=== PATIENT | male | born 1990 | race Two or more races ===

== ENCOUNTER 2025-01-23 17:59 | Emergency (ER) | payer MEDICAID, SELFPAY ==
[2025-01-23 18:18] VITALS: BP 133/95; PULSE 109; RESP 18; TEMP 37.7; O2SAT 99; BMI 13.6
--- NOTE | 2025-01-23 18:27 | PD.EDRME ---
Rapid Medical Screening Exam RME Arrival date/time: 01/23/25 17:59 34-year-old male who reports is currently in substance abuse treatment clinic presents emergency department complaining of sore throat that started this morning when he woke up. Chief Complaint: Dental/Oral/Throat Time Seen by Provider: 01/23/25 18:06 Vital signs: Vital Signs Temperature 99.8 F 01/23/25 18:18 Pulse Rate 109 H 01/23/25 18:18 Respiratory Rate 18 01/23/25 18:18 Blood Pressure 133/95 H 01/23/25 18:18 Pulse Oximetry (%) 99 01/23/25 18:18 Oxygen Delivery Method Room Air 01/23/25 18:18 Vital signs reviewed by provider: Yes
--- NOTE | 2025-01-23 18:28 | XR_ITS ---
Examination: PA lateral chest 2 views Technique: Upright PA lateral chest 2 views Exam date and time: January 23, 2025 1848 hrs. Comparison March 09, 2023 Indications: Coughing today. Findings: No significant cardiac enlargement No pneumonia or pulmonary edema The osseous structures are intact Impression: No active disease
--- NOTE | 2025-01-23 18:34 | EDNOTE_ITS ---
<Statement entered by Anita Schumacher MD - 01/24/25 05:26> As co-signing physician, I was present and available for consult prn. I concur with the plan and care as documented by the midlevel provider. ED Dental RME/HPI General Chief complaint: Dental/Oral/Throat Stated complaint: THROAT HURTS X AM Time Seen by Provider: 01/23/25 18:06 Source: patient Arrival date/time: 01/23/25 17:59 34-year-old male who reports is currently in substance abuse treatment clinic presents emergency department complaining of sore throat that started this morning when he woke up. Patient denies any fever, chills, vomiting, or any other associated symptom. Mode of arrival: ambulatory Limitations: no limitations RME / HPI RME / HPI Narrative: 01/23/25 17:59 34-year-old male who reports is currently in substance abuse treatment clinic presents emergency department complaining of sore throat that started this morning when he woke up. Related Data Home Medications ?Medication ?Instructions ?Recorded ?Confirmed omeprazole 20 mg capsule,delayed 20 mg PO DAILY 04/29/23 release Previous Rx's ?Medication ?Instructions ?Recorded dicyclomine 20 mg tablet 20 mg PO TID #30 tabs ibuprofen 800 mg tablet 800 mg PO TID PRN pain #30 t abs 03/30/23 oxycodone-acetaminophen 5 mg-325 1 tab PO Q6H PRN pain #10 tabs 04/14/23 mg tablet (Percocet) ibuprofen 600 mg tablet 600 mg PO Q8H PRN pain #20 t abs 01/23/25 Allergies Allergy/AdvReac Type Severity Reaction Status Date / Time NKA* Allergy Uncoded 01/23/25 18:00 Review of Systems Review of Systems Systems Reviewed: All systems reviewed, normal except as documented Constitutional Constitutional: Reports system reviewed and no additional complaints, except as documented, Denies body ache(s), Denies chills and Denies fever(s) Eyes Eyes: Reports system reviewed and no additional complaints, except as documented and Denies change in vision ENT Ears, Nose, Mouth, and Throat: Reports system reviewed and no additional complaints, except as documented, Denies disequilibrium, Denies dizziness, Reports sore throat and Denies vertigo Cardiovascular Cardiovascular: Reports system reviewed and no additional complaints, except as documented, Denies chest pain and Denies dyspnea Respiratory Respiratory: Reports system reviewed and no additional complaints, except as documented, Denies chest congestion, Denies cough and Denies dyspnea Gastrointestinal Gastrointestinal: Reports system reviewed and no additional complaints, except as documented, Denies abdominal pain, Denies nausea and Denies vomiting Musculoskeletal Musculoskeletal: Reports system reviewed and no additional complaints, except as documented, Denies abnormal gait and Denies arthralgias Integumentary/Breasts Skin/Breast: Reports system reviewed and no additional complaints, except as documented, Denies erythema, Denies rash and Denies wounds Neurologic Neurologic: Reports system reviewed and no additional complaints, except as documented, Denies abnormal gait, Denies disequilibrium, Denies dizziness and Denies vertigo Past Medical History Past Medical History NEUROLOGIC: Negative Seizures CARDIAC: Negative Cardiac Disorders or Congestive Heart Failure RESPIRATORY: Negative Chronic Obstructive Pulmonary Disease (COPD) or Asthma GENITOURINARY: Negative Renal Disease ENDOCRINE: Negative Diabetes Mellitus Type 1 or Diabetes Mellitus Type 2 HEMATOLOGIC: Negative Sickle Cell Disease OTHER HISTORY: Negative Blood Transfusions, Blood Transfusion Reaction or Anesthesia Reactions Social History SMOKING STATUS: Never smoker SECOND HAND EXPOSURE: No ED Exam General Limitations: Present no limitations General appearance: Present alert and in no apparent distress Head Head exam: Present atraumatic Eye Eye exam: Present normal appearance, PERRL and EOMI ENT ENT exam: Present normal exam, normal oropharynx and mucous membranes moist Expanded ENT Exam Throat exam: Absent tonsillar erythema, tonsillomegaly, tonsillar exudate or muffled voice Neck Neck exam: Present normal inspection, full ROM and trachea midline Chest Chest inspection: Present normal inspection and symmetric chest wall rise Respiratory Respiratory exam: Present normal lung sounds bilaterally Cardiovascular Cardiovascular exam: Present regular rate, normal rhythm and normal heart sounds Abdominal Exam Abdominal exam: Present soft and normal bowel sounds Extremities Exam Extremities exam: Present normal inspection and full ROM Back Exam Back exam: Present normal inspection and full ROM Neurological Exam Neurological exam: Present alert, oriented X3 and CN II-XII intact Psychiatric Psychiatric exam: Present normal affect and normal mood Skin Skin exam: Present warm, dry, intact and normal color Course Quality Measures none Orders Category Date Time Status XR chest 2V Stat Exams 01/23/25 18:28 Completed Strep A Rapid Stat Lab 01/23/25 18:39 Completed Ketorolac Inj [Toradol Inj] Med 01/23/25 18:28 Discontinued 30 mg IM X1 ONE Vital Signs Vital signs: Vital Signs Temperature 99.8 F 01/23/25 18:18 Pulse Rate 109 H 01/23/25 18:18 Respiratory Rate 18 01/23/25 18:18 Blood Pressure 133/95 H 01/23/25 18:18 Pulse Oximetry (%) 99 01/23/25 18:18 Oxygen Delivery Method Room Air 01/23/25 18:18 99% room air within normal limits Dental / Oral MDM Narrative MDM Narrative:: 34-year-old male who reports is currently in substance abuse treatment clinic presents emergency department complaining of sore throat that started this morning when he woke up. Patient denies any fever, chills, vomiting, or any other associated symptom. Strep swab negative. Chest x-ray was unremarkable. Patient appears nontoxic and is hemodynamically stable. Patient stable for discharge. Patient data External records reviewed:: [facility] previous records Clinical information provided by:: patient Social determinants that could affect healthcare access:: none Patient has the following chronic illnesses:: See chart How is presenting disease/condition affected by chronic disease/condition?: uneffected by Evaluation data The following diagnostics were reviewed and interpreted by me:: lab results and radiology exam(s) Lab and/or radiology exams considered but not ordered:: Ordered Interpretation Summary: Interpreted by me Medications / Prescriptions Medications or Prescriptions considered but not ordered:: Ordered Medication administrations:: Medication Administration History Discontinued Medications Ketorolac Tromethamine (Ketorolac Inj 60 Mg/2 Ml Vial) 30 mg IM X1 ONE Stop: 01/23/25 18:29 Last Admin: 01/23/25 19:54 Dose: 30 mg Documented By: MP Given Consultations Consultation(s) initiated? (list below): No Diagnosis Dental Differential Diagnosis: other (Pharyngitis, otitis media, mononucleosis, viral infection) Most likely diagnosis given after review of the tests above:: Viral infection Admission Indicated Admission indicated?: not indicated Admission Request Was there a request for admission?: No Disposition Plan Disposition Plan: Discharge Discharge Attestation Discharge Attestation: The patient and all family members were given an opportunity to ask questions and understood the discharge instructions. Discharge instructions specifically effects, indications for sooner follow up or return to the emergency department, and the expected course of current diagnosis. Patient condition: Stable Discharge Plan Plan Patient Disposition: HOME (Self Care) Disposition Comment: Stable Prescriptions/Referrals Prescriptions/Med Rec: New ibuprofen 600 mg tablet 600 mg PO Q8H PRN (Reason: pain) Qty: 20 0RF No Action dicyclomine 20 mg tablet 20 mg PO TID Qty: 30 0RF ibuprofen 800 mg tablet 800 mg PO TID PRN (Reason: pain) Qty: 30 0RF omeprazole 20 mg capsule,delayed release(DR/EC) 20 mg PO DAILY Patient Comments: TAKE 1 CAPSULE BY MOUTH 30 MINUTES BEFORE MORNING MEAL EVERY DAY FOR 30 DAYS oxycodone-acetaminophen [Percocet] 5-325 mg tablet 1 tab PO Q6H MDD 6 tabs PRN (Reason: pain) Qty: 10 0RF Referrals: No Primary/Family,Physician [Primary Care Provider] - In 1 week Problem List Clinical Impression: Viral infection Patient/Caregiver Discharge Instructions Discharge Activity: activity as tolerated Education Materials: ED Viral Syndrome (Adult) Additional Instructions: Drink plenty of fluids and get plenty of rest. Take ibuprofen or Tylenol as needed for fever or pain. Follow-up with primary care provider 2 to 3 days. Return to emergency department for any worsening symptoms or as needed. Print Language: Faroese Stand Alone Forms: [employer] Info., Patient Portal Info Letter PA/MANUEL Supervising Physician PA/MANUEL Supervising Physician: Dr. Schumacher
[2025-01-23 19:26] LABS: Strep A Rapid Negative (Negative)
[2025-01-23] MEDS: KETOROLAC INJ 60 MG/2 ML VIAL 30 MG IM (19:54)
[2025-01-23 20:50] VITALS: RESP 18
== END 2025-01-23 20:51 | disposition home or self-care (01) ==
PROVIDERS: Emergency Provider Emergency Medicine
DX: B34.9 Viral infection, unspecified (principal)
CPT/HCPCS: 71046; 87651; 96372; 99283; J1885

== ENCOUNTER → 2025-02-09 | Outpatient (CLI) | payer MEDICAID, SELFPAY ==
--- NOTE | 2025-02-09 15:45 | XR_ITS ---
Examination: Hand, right 3 views Technique: Hand AP, oblique, lateral 3 views Date and time of exam: February 09, 2025 1502 hrs. Indications: Fracture and 9 months ago Findings: Healed fracture base fifth metacarpal No acute fracture Impression: Healed fracture base fifth metacarpal with satisfactory alignment
--- NOTE | 2025-02-09 15:45 | XR_ITS ---
Examination: Wrist, right 3 views Technique: Wrist AP, oblique, lateral 3 views Date and time of exam: February 09, 2025 at 1602 hrs. Indications: History fracture 9 months ago Findings: Healed fracture proximal fifth metacarpal Adequate alignment No acute fracture Carpal bones intact Impression: Healed fracture fifth metacarpal
== END | disposition home or self-care (01) ==
PROVIDERS: PCP Nurse Practitioner Gerontology; Referring Provider Nurse Practitioner Gerontology; Visit Provider Nurse Practitioner Gerontology
DX: M25.531 Pain in right wrist (principal); M79.641 Pain in right hand; Z87.81 Personal history of (healed) traumatic fracture
CPT/HCPCS: 73110; 73130

== ENCOUNTER 2025-03-15 20:00 | Emergency (ER) | payer MEDICAID, SELFPAY ==
[2025-03-15 20:01] VITALS: BMI 35.9
[2025-03-15 21:06] VITALS: BP 142/84; PULSE 89; RESP 18; TEMP 37.2; O2SAT 98
--- NOTE | 2025-03-15 21:20 | PD.EDDENTL ---
ED Dental RME/HPI General Chief complaint: Dental/Oral/Throat Stated complaint: LEFT CHEEK SWELLING, POSS TOOTH INFECTION Time Seen by Provider: 03/15/25 21:15 Arrival date/time: 03/15/25 20:00 34M with no significant PMH presents to ED with L dental pain and cheek swelling. Limitations: no limitations Related Data Home Medications ?Medication ?Instructions ?Recorded ?Confirmed omeprazole 20 mg capsule,delayed 20 mg PO DAILY 04/12/23 04/29/23 release Previous Rx's ?Medication ?Instructions ?Recorded dicyclomine 20 mg tablet 20 mg PO TID #30 tabs 03/30/23 ibuprofen 800 mg tablet 800 mg PO TID PRN pain #30 tabs 03/30/23 oxycodone-acetaminophen 5 mg-325 1 tab PO Q6H PRN pain #10 tabs 04/14/23 mg tablet (Percocet) ibuprofen 600 mg tablet 600 mg PO Q8H PRN pain #20 tabs 01/23/25 amoxicillin 875 mg-potassium 1 tab PO BID 7 days #14 tabs 03/15/25 clavulanate 125 mg tablet Allergies Allergy/AdvReac Type Severity Reaction Status Date / Time No Known Allergies Allergy Verified 03/15/25 20:03 Review of Systems Review of Systems Systems Reviewed: All systems reviewed, normal except as documented Constitutional Constitutional: Reports system reviewed and no additional complaints, except as documented, Denies fever(s) and Denies headache(s) ENT Ears, Nose, Mouth, and Throat: Reports as per HPI, Reports dental pain, Denies disequilibrium, Reports facial pain and Denies headache(s) Cardiovascular Cardiovascular: Reports system reviewed and no additional complaints, except as documented, Denies chest pain and Denies dyspnea Respiratory Respiratory: Reports system reviewed and no additional complaints, except as documented, Denies cough and Denies dyspnea Gastrointestinal Gastrointestinal: Reports system reviewed and no additional complaints, except as documented, Denies abdominal pain, Denies nausea and Denies vomiting Neurologic Neurologic: Reports system reviewed and no additional complaints, except as documented, Denies confusion, Denies disequilibrium and Denies headache(s) Psychiatric Psychiatric: Denies confusion Past Medical History Past Medical History NEUROLOGIC: Negative Seizures CARDIAC: Negative Cardiac Disorders or Congestive Heart Failure RESPIRATORY: Negative Chronic Obstructive Pulmonary Disease (COPD) or Asthma GENITOURINARY: Negative Renal Disease ENDOCRINE: Negative Diabetes Mellitus Type 1 or Diabetes Mellitus Type 2 HEMATOLOGIC: Negative Sickle Cell Disease OTHER HISTORY: Negative Blood Transfusions, Blood Transfusion Reaction or Anesthesia Reactions Social History SMOKING STATUS: Current every day smoker SECOND HAND EXPOSURE: No ED Exam General Limitations: Present no limitations General appearance: Present alert and in no apparent distress Head Head exam: Present atraumatic Eye Eye exam: Present normal appearance, PERRL and EOMI ENT ENT exam: Present normal oropharynx and mucous membranes moist Expanded ENT Exam External ear exam: Present other (L cheek swelling) Teeth exam: Present dental caries and gingival swelling Neck Neck exam: Present normal inspection, full ROM and trachea midline Chest Chest inspection: Present normal inspection and symmetric chest wall rise Respiratory Respiratory exam: Present normal lung sounds bilaterally Cardiovascular Cardiovascular exam: Present regular rate, normal rhythm and normal heart sounds Abdominal Exam Abdominal exam: Present soft and normal bowel sounds Extremities Exam Extremities exam: Present normal inspection and full ROM Back Exam Back exam: Present normal inspection and full ROM Neurological Exam Neurological exam: Present alert, oriented X3 and CN II-XII intact Psychiatric Psychiatric exam: Present normal affect and normal mood Skin Skin exam: Present warm, dry, intact and normal color Course Quality Measures none Orders Category Date Time Status Amoxicillin/Pot Clav 875 [Augmentin 875] Med 03/15/25 21:17 Discontinued 1 tab PO X1 ONE Naproxen [Naprosyn] Med 03/15/25 21:17 Discontinued 500 mg PO X1 ONE Vital Signs Vital signs: Vital Signs Temperature 99 F 03/15/25 21:06 Pulse Rate 89 03/15/25 21:06 Respiratory Rate 18 03/15/25 21:06 Blood Pressure 142/84 H 03/15/25 21:06 Pulse Oximetry (%) 98 03/15/25 21:06 Oxygen Delivery Method Room Air 03/15/25 21:06 O2 at 98% on RA and WNLs Dental / Oral MDM Narrative MDM Narrative:: 34M with no significant PMH presents to ED with L dental pain and cheek swelling. Physical exam reveals dental carries, gingival swelling, and L cheek swelling. Patient is afebrile, calm, and alert. Likely dental abscess. Meds and quitline counselor given. Patient data External records reviewed:: [facility] previous records Clinical information provided by:: patient Social determinants that could affect healthcare access:: none Patient has the following chronic illnesses:: none How is presenting disease/condition affected by chronic disease/condition?: no chronic disease Evaluation data The following diagnostics were reviewed and interpreted by me:: other (specify) (none) Lab and/or radiology exams considered but not ordered:: not ordered Interpretation Summary: n/a Medications / Prescriptions Medications or Prescriptions considered but not ordered:: ordered Medication administrations:: Medication Administration History Discontinued Medications Amoxicillin/Clavulanate Potassium (Amoxicillin/Pot Clav 875 Tablet) 1 tab PO X1 ONE Stop: 03/15/25 21:18 Naproxen (Naproxen 250 Mg Tablet) 500 mg PO X1 ONE Stop: 03/15/25 21:18 above Consultations Consultation(s) initiated? (list below): No Diagnosis Dental Differential Diagnosis: gingival abscess, dental caries, toothache, dental abscess, fracture of tooth and aphthous ulcer Most likely diagnosis given after review of the tests above:: dental abscess Admission Indicated Admission indicated?: not indicated Admission Request Was there a request for admission?: No Disposition Plan Disposition Plan: Discharge Discharge Attestation Discharge Attestation: The patient and all family members were given an opportunity to ask questions and understood the discharge instructions. Discharge instructions specifically effects, indications for sooner follow up or return to the emergency department, and the expected course of current diagnosis. Patient condition: Stable Discharge Plan Plan Patient Disposition: HOME (Self Care) Disposition Comment: Stable Prescriptions/Referrals Prescriptions/Med Rec: New amoxicillin-pot clavulanate 875-125 mg tablet 1 tab PO BID 7 Days Qty: 14 0RF No Action dicyclomine 20 mg tablet 20 mg PO TID Qty: 30 0RF ibuprofen 800 mg tablet 800 mg PO TID PRN (Reason: pain) Qty: 30 0RF omeprazole 20 mg capsule,delayed release(DR/EC) 20 mg PO DAILY Patient Comments: TAKE 1 CAPSULE BY MOUTH 30 MINUTES BEFORE MORNING MEAL EVERY DAY FOR 30 DAYS oxycodone-acetaminophen [Percocet] 5-325 mg tablet 1 tab PO Q6H MDD 6 tabs PRN (Reason: pain) Qty: 10 0RF ibuprofen 600 mg tablet 600 mg PO Q8H PRN (Reason: pain) Qty: 20 0RF Problem List Clinical Impression: Dental abscess Patient/Caregiver Discharge Instructions Education Materials: ED Dental Abscess Additional Instructions: Please follow-up with PCP within 24-48 hours and return immediately if symptoms worsen. See dentist soon. Print Language: Turkmen Stand Alone Forms: Patient Portal Info Letter PA/SALES EXP[employer] THE[employer] Supervising Physician PA/SALES EXP[employer] THEATER Supervising Physician: Dr. Moses
[2025-03-15] MEDS: NAPROXEN 250 MG TABLET 500 MG PO (21:25)
[2025-03-15] MEDS: AMOXICILLIN/POT CLAV 875 TABLET 1 TAB PO (21:26)
[2025-03-15 21:47] VITALS: BP 138/78; PULSE 78; RESP 18; TEMP 36.7; O2SAT 99
== END 2025-03-15 21:50 | disposition home or self-care (01) ==
LOC: SERX 21:31
PROVIDERS: Emergency Provider Emergency Medicine
DX: K04.7 Periapical abscess without sinus (principal)
CPT/HCPCS: 99282; A9270

== ENCOUNTER 2025-03-16 20:59 | Emergency (ER) | payer MEDICAID, SELFPAY ==
[2025-03-16 21:00] VITALS: BMI 35.9
[2025-03-16 21:14] VITALS: BP 138/91; PULSE 100; RESP 18; TEMP 37.7; O2SAT 96
--- NOTE | 2025-03-16 21:24 | PD.EDDENTL ---
ED Dental RME/HPI General Chief complaint: Dental/Oral/Throat Stated complaint: TOOTH INFECTION, SWELLING TO LEFT SIDE Time Seen by Provider: 03/16/25 21:01 Arrival date/time: 03/16/25 20:59 RME / HPI RME / HPI Narrative: 34-year-old male patient came in for evaluation regarding dental infection. Patient was seen here yesterday and was diagnosed with dental abscess, was started on Augmentin. Today this morning patient went to her dentist and I&D was done and pus came out. Patient is worried because still swollen. Patient denies any fever denies any difficulty swallowing denies any other complaints no medications taken prior to ER visit. Related Data Home Medications ?Medication ?Instructions ?Recorded ?Confirmed omeprazole 20 mg capsule,delayed 20 mg PO DAILY 04/12/23 04/29/23 release Previous Rx's ?Medication ?Instructions ?Recorded dicyclomine 20 mg tablet 20 mg PO TID #30 tabs 03/30/23 ibuprofen 800 mg tablet 800 mg PO TID PRN pain #30 tabs 03/30/23 oxycodone-acetaminophen 5 mg-325 1 tab PO Q6H PRN pain #10 tabs 04/14/23 mg tablet (Percocet) ibuprofen 600 mg tablet 600 mg PO Q8H PRN pain #20 tabs 01/23/25 amoxicillin 875 mg-potassium 1 tab PO BID 7 days #14 tabs 03/15/25 clavulanate 125 mg tablet Allergies Allergy/AdvReac Type Severity Reaction Status Date / Time No Known Allergies Allergy Verified 03/15/25 20:03 Review of Systems Review of Systems Narrative Review of Systems: Review of system reviewed and within normal limits except mentioned in HPI ED Exam Narrative Physical exam: VITAL SIGNS: Reviewed. GENERAL APPEARANCE: Alert and interactive, follows commands, no acute distress, HEAD AND FACE: Left sided facial swelling, left upper premolar dental cavity with gumline swelling nonfluctuant status post I&D with tenderness ENT: PERRL, pink conjunctivitis, eyelid no trauma, Mucous membrane moist. NECK: Supple, nontender, no nuchal rigidity. RECTAL: Deferred. GENITAL: Deferred. NEUROLOGICAL: Gross motor function intact sensory function intact, Appropriate for age. MUSCULOSKELETAL: low back nontender, full range of motion. EXTREMITIES: Nontender, full range of motion. SKIN: Color pink, dry, no rash, no lacerations, no abrasions, no contusions. LYMPHATICS: Deferred. Course Quality Measures none Vital Signs Vital signs: Vital Signs Temperature 99.8 F 03/16/25 21:14 Pulse Rate 100 03/16/25 21:14 Respiratory Rate 18 03/16/25 21:14 Blood Pressure 138/91 H 03/16/25 21:14 Pulse Oximetry (%) 96 03/16/25 21:14 Oxygen Delivery Method Room Air 03/16/25 21:14 Dental / Oral MDM Narrative MDM Narrative:: 34-year-old male patient came in for evaluation regarding dental infection. Patient was seen here yesterday and was diagnosed with dental abscess, was started on Augmentin. Today this morning patient went to her dentist and I&D was done and pus came out. Patient is worried because still swollen. Patient denies any fever denies any difficulty swallowing denies any other complaints no medications taken prior to ER visit. Patient does not need any repeat I&D. Patient swelling is secondary to an abscess status post I&D. Patient was advised to taking antibiotic that was prescribed yesterday. Was advised to see his dentist again tomorrow. Patient appears nontoxic and hemodynamically stable. Patient discharged home and instructed to follow-up with primary care provider in 24 to 48 hours. Instructed to return to the emergency department immediately if worsening of symptoms Patient data External records reviewed:: None Clinical information provided by:: none Social determinants that could affect healthcare access:: none Patient has the following chronic illnesses:: Plan How is presenting disease/condition affected by chronic disease/condition?: no chronic disease Evaluation data The following diagnostics were reviewed and interpreted by me:: other (specify) Lab and/or radiology exams considered but not ordered:: None Interpretation Summary: None Medications / Prescriptions Medications or Prescriptions considered but not ordered:: None Medication administrations:: None Consultations Consultation(s) initiated? (list below): No Diagnosis Dental Differential Diagnosis: gingival abscess, dental caries and dental abscess Most likely diagnosis given after review of the tests above:: Dental abscess status post I&D Admission Indicated Admission indicated?: not indicated Explain why admission is indicated or not indicated:: Stable Admission Request Was there a request for admission?: No Disposition Plan Disposition Plan: Discharge Discharge Attestation Discharge Attestation: The patient was given an opportunity to ask questions and understood the discharge instructions. Discharge instructions specifically effects, indications for sooner follow up or return to the emergency department, and the expected course of current diagnosis. Patient condition: Stable Discharge Plan Plan Patient Disposition: HOME (Self Care) Disposition Comment: stable Prescriptions/Referrals Prescriptions/Med Rec: No Action dicyclomine 20 mg tablet 20 mg PO TID Qty: 30 0RF ibuprofen 800 mg tablet 800 mg PO TID PRN (Reason: pain) Qty: 30 0RF omeprazole 20 mg capsule,delayed release(DR/EC) 20 mg PO DAILY Patient Comments: TAKE 1 CAPSULE BY MOUTH 30 MINUTES BEFORE MORNING MEAL EVERY DAY FOR 30 DAYS oxycodone-acetaminophen [Percocet] 5-325 mg tablet 1 tab PO Q6H MDD 6 tabs PRN (Reason: pain) Qty: 10 0RF ibuprofen 600 mg tablet 600 mg PO Q8H PRN (Reason: pain) Qty: 20 0RF amoxicillin-pot clavulanate 875-125 mg tablet 1 tab PO BID 7 Days Qty: 14 0RF Problem List Clinical Impression: Dental abscess Patient/Caregiver Discharge Instructions Discharge Activity: activity as tolerated Education Materials: ED Abscess Antibiotic ... Additional Instructions: Thank you for the opportunity for serving you today. You are stable for discharged . You are advised to: Follow-up with your dentist in 1 to 2 days Return to ED for worsening of symptoms Increase oral fluids Continue taking your Augmentin that was prescribed yesterday Print Language: Mexican Stand Alone Forms: [employer] Info., Patient Portal Info Letter GEORGE/MANUEL Supervising Physician GEORGE/MANUEL Supervising Physician: MD Shreya
== END 2025-03-16 21:28 | disposition home or self-care (01) ==
LOC: SERX 21:24
PROVIDERS: Emergency Provider Emergency Medicine
DX: K04.7 Periapical abscess without sinus (principal)
CPT/HCPCS: 99281